=== PATIENT | female | born 1960 | race Caucasian/White ===

== ENCOUNTER 2021-04-01 13:41 | Emergency (ER) | payer MEDICARE, OTHER ==
[~2021-04-01] VITALS: Ht 154.9 cm; Wt 59.4 kg
[~2021-04-01 13:41] MED LIST: AMLODIPINE BESY10 MG PO; ATROVENT HFA12.9 GM INH; HYDROCODON-ACE1 EA10 PO; HYDROCODON-ACE1 EAC8 PO; NORVASC5 MG PO; OMEPRAZOLE20 M1 PO; PERCOCET 7.5-31 EACH PO; TRAMADOL HCL50 MG PO; ZESTORETIC 20-251 EA PO
--- OUTSIDE RECORDS SUMMARY | 2021-04-01 13:44 | XMS ---
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 EJanna VISIT COUNT (12 MO.) [address] [address]amorro [address] [place] [address] TOTAL 2 NOTE: Visits indicate total known visits. ED/UCC VISIT TRACKING (12 MO.) 04/01/2021 13:[address] [facility] [place] TYPE: Emergency COMPLAINT: - HAND PAIN 03/24/2021 14:47 [facility] [place] TYPE: Emergency DIAGNOSES: - Elevated white blood cell count, unspecified - Followup Medical Problem - Cellulitis of left upper limb - Hand Complaint - Rodent Bite INPATIENT VISIT TRACKING (12 MO.) 03/24/2021 21:51 [facility] TYPE: Internal Medicine DIAGNOSES: 0. TENO SYNNOVITIS CELLULITIS [email or web address]
[2021-04-01] MEDS ORDERED: AUGMENTIN 875-1 EACH PO (17:16)
[2021-04-01] MEDS ORDERED: K-TAB ER20 MEQ PO (17:21)
--- NOTE | 2021-04-01 19:49 | EKG ---
[facility] [address] [facility] [place], [place] [address] Signed Normal sinus rhythm Possible Left atrial enlargement Nonspecific ST abnormality Abnormal ECG No previous ECGs available Confirmed by ROGERS CORONADO DO ([id number]) on 04/01/2021 7:49:31 PM Electronically Signed By: ROGERS CORONADO DO 04/01/211948 PATIENT NAME: DIANE JEFFERSON Electrocardiogram DATE OF : 56 PHYSICIAN: ROGERS CORONADO DO REPORT #: [id number] REPORT IS CONFIDENTIAL AND NOT TO BE RELEASED WITHOUT AUTHORIZATION
== END 2021-04-01 17:32 | disposition home or self-care (01) ==
LOC: ED 13:41
DX: L03.113 Cellulitis of right upper limb (principal); E87.6 Hypokalemia; R53.1 Weakness; I10 Essential (primary) hypertension; F17.200 Nicotine dependence, unspecified, uncomplicated; Z79.899 Other long term (current) drug therapy
CPT/HCPCS: 70450; 80053; 84484; 85025; 93005; 93010; 99284-25

== ENCOUNTER 2021-04-30 16:53 | Emergency (ER) | payer MEDICARE, OTHER ==
[~2021-04-30] VITALS: Ht 154.9 cm; Wt 59.4 kg
[~2021-04-30 16:53] MED LIST changes: +ATORVASTATIN CA80 MG PO; +AUGMENTIN 875-1 EACH PO; +CEPHALEXIN500 M1 PO; +K-TAB ER20 MEQ PO
--- OUTSIDE RECORDS SUMMARY | 2021-04-30 16:56 | XMS ---
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 Denys VISIT COUNT (12 MO.) 2 Jermaine Chamorro [address] [place] [address] TOTAL 5 NOTE: Visits indicate total known visits. ED/UCC VISIT TRACKING (12 MO.) 04/30/2021 16:54 [facility] [place] TYPE: Emergency COMPLAINT: - HEAD INJURY 04/26/2021 11:35 [facility] [place] TYPE: Emergency COMPLAINT: - POST OP ISSUE DIAGNOSES: - Personal history of transient ischemic attack (TIA), and cerebral infarction without residual deficits - Nicotine dependence, unspecified, uncomplicated - Disruption of external operation (surgical) wound, not elsewhere classified, initial encounter - Other shelter (current) drug therapy - Essential (primary) hypertension 04/10/2021 11:37 [facility] TYPE: Emergency DIAGNOSES: - Cerebral infarction, unspecified - Dysarthria and anarthria - Weakness - Stroke-like symptoms - Slurred Speech - Cerebral infarction due to thrombosis of unspecified carotid artery 04/01/2021 13:42 [facility] [place] TYPE: Emergency COMPLAINT: - HAND PAIN DIAGNOSES: - Nicotine dependence, unspecified, uncomplicated - Cellulitis of right upper limb - Hypokalemia - 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 TYPE: Vascular Surgery DIAGNOSES: - Occlusion and stenosis of left carotid artery - Cerebral infarction due to thrombosis of right middle cerebral artery 03/24/2021 21:51 [facility] TYPE: Internal Medicine DIAGNOSES: 0. MELITAO SYNNOVITIS CELLULITIS [email or web address]
[2021-04-30] MEDS ORDERED: CLOPIDOGREL75 MG PO (17:07)
[2021-04-30] MEDS ORDERED: DUPIXENT P300 MG/2 M (17:08)
[2021-04-30] MEDS ORDERED: AMOX TR-K CLV1 EAC1 PO (17:08)
[2021-04-30] MEDS ORDERED: HYDROXYZINE HCL10 MG PO (17:09)
[2021-04-30] MEDS ORDERED: TRIAMCINOLONE A15 G3 TOP (17:09)
== END 2021-04-30 19:12 | disposition home or self-care (01) ==
LOC: ED 16:53
DX: S01.81XA Laceration without foreign body of other part of head, initial encounter (principal); W25.XXXA Contact with sharp glass, initial encounter; I10 Essential (primary) hypertension; F17.200 Nicotine dependence, unspecified, uncomplicated; Z79.899 Other long term (current) drug therapy
CPT/HCPCS: 12002; 70450; 99283-25

== ENCOUNTER 2023-10-17 03:40 | Emergency (ER) | payer MEDICARE, OTHER ==
[~2023-10-17] VITALS: Ht 154.9 cm; Wt 62.2 kg
[~2023-10-17 03:40] MED LIST changes: +AMOX TR-K CLV1 EAC1 PO; +CLOPIDOGREL75 MG PO; +DUPIXENT P300 MG/2 M; +HYDROXYZINE HCL10 MG PO; +TRIAMCINOLONE A15 G3 TOP
[2023-10-17 03:53] LABS: BASOPHILS 0.1 % (0-2); HEMATOCRIT 32.5 % (35.0-50.0); HEMOGLOBIN 10.2 g/dL (12.0-18.0); LYMPHOCYTES 6.2 % (24-44); MCH 23.2 (27-36); MCHC 31.5 g/dl (30-36); MCV 73.7 fl (81-99); MONOCYTES 14.7 % (0-12); PLATELET COUNT 460 K/uL (140-440); RBC 4.41 M/ul (4.3-5.7); RDW 17.5 (10.5-15.0)
[2023-10-17] MEDS ORDERED: ondansetron HCL 4 MG/2 ML VIAL IV ONE (04:00)
[2023-10-17] MEDS ORDERED: FAMOTIDINE 20 MG/ 2 ML VIAL IV ONE (04:00)
[2023-10-17] MEDS ORDERED: droPERidol 5 MG/2 ML VIAL IV ONE (04:00)
[2023-10-17] MEDS ORDERED: methylPREDNISolone SOD SUCC 125 MG/2 ML VIAL IV ONE (04:00)
[2023-10-17] MEDS ORDERED: LACTATED RINGER'S 1,000 ML IV ONE (04:00)
[2023-10-17 04:34] LABS: ALBUMIN/GLOBULIN RATIO 0.54 (1.1-2.4); ANION GAP 15.9 (7-21); BILIRUBIN, TOTAL 0.5 ng/dL (0.2-1.0); BUN/CREATININE RATIO 12.89 (6.0-28.6); CALCIUM 8.3 mg/dL (8.5-10.1); CREATININE, SERUM 4.42 mg/dL (0.55-1.02); POTASSIUM 3.9 mmol/L (3.5-5.1); PROTEIN, TOTAL 8.6 g/dL (6.4-8.2)
[2023-10-17] MEDS ORDERED: SODIUM CHLORIDE 0.9% 1,000 ML IV PRN (04:45)
[2023-10-17 05:14] LABS: INFLUENZA B NAA NEGATIVE (NEGATIVE); RESPIRATORY SYNCYTIAL VIR NAA NEGATIVE (NEGATIVE)
[2023-10-17] MEDS ORDERED: CEFTRIAXONE/SODIUM CHLORIDE 2 GM/100 ML PIGGYBACK IV ONE (06:00)
[2023-10-17 06:20] LABS: ANION GAP 13.4 (7-21); BUN/CREATININE RATIO 15.06 (6.0-28.6); CALCIUM 7.4 mg/dL (8.5-10.1); CREATININE, SERUM 3.85 mg/dL (0.55-1.02); POTASSIUM 3.4 mmol/L (3.5-5.1)
[2023-10-17 06:29] LABS: LACTIC ACID, BLOOD 1.7 mmol/L (0.4-2.0)
[2023-10-17] MEDS ORDERED: CALCIUM GLUCONATE 2,000 MG in DEXTROSE 5% 100 ML IV ONE (06:30)
[2023-10-17 06:43] LABS: BILIRUBIN, URINE POSITIVE (negative); BLOOD/HGB, URINE SMALL (Negative); KETONE, URINE TRACE (Negative); LEUK ESTERASE, URINE LARGE (negative); NITRITE, URINE NEGATIVE (negative); PH, URINE 6.5 (5-7)
[2023-10-17 06:49] LABS: EPITHELIAL CELLS, URINE SQUAMOUS 1+ /lpf (0-1+)
[2023-10-17 06:50] LABS: BACTERIA, URINE 4+ /hpf (negative); CASTS, URINE NONE SEEN \\lpf; COLLECTION TYPE, URINE CLEAN CATCH; CRYSTALS, URINE NONE SEEN (0-1+); REFLEX CULTURE, URINE Yes (No)
[2023-10-17] MEDS ORDERED: SODIUM CHLORIDE 0.9% 1,000 ML IV SCH (07:00)
[2023-10-17 09:10] LABS: ANION GAP 9.8 (7-21); BUN/CREATININE RATIO 18.33 (6.0-28.6); CALCIUM 10.3 mg/dL (8.5-10.1); POTASSIUM 2.8 mmol/L (3.5-5.1)
[2023-10-17 09:48] VITALS: BP 115/70
--- NOTE | 2023-10-17 15:38 | EKG ---
[facility] [address] [facility] [place] [address] Signed Normal sinus rhythm Nonspecific ST and T wave abnormality Prolonged QT Abnormal ECG When compared with ECG of 01-APR-2021 15:32, No significant change was found Confirmed by Rafael Zelaya ([id number]) on 10/17/2023 3:38:33 PM Electronically Signed By: RAFAEL ZELAYA MD 10/17/23 1538 PATIENT NAME: DIANE JEFFERSON Electrocardiogram DATE OF : 56 PHYSICIAN: RAFAEL ZELAYA MD REPORT #: [id number] REPORT IS CONFIDENTIAL AND NOT TO BE RELEASED WITHOUT AUTHORIZATION
== END 2023-10-17 09:48 | disposition other institution, planned readmission (95) ==
LOC: ED 03:40
PROVIDERS: Internal Medicine
DX: K56.699 Other intestinal obstruction unspecified as to partial versus complete obstruction (principal); N17.9 Acute kidney failure, unspecified; E86.0 Dehydration; E87.1 Hypo-osmolality and hyponatremia; K65.1 Peritoneal abscess; E87.6 Hypokalemia; R79.1 Abnormal coagulation profile; J44.9 Chronic obstructive pulmonary disease, unspecified; I10 Essential (primary) hypertension; Z86.73 Personal history of transient ischemic attack (TIA), and cerebral infarction without residual deficits; F17.200 Nicotine dependence, unspecified, uncomplicated; Z79.02 Long term (current) use of antithrombotics/antiplatelets; Z79.899 Other long term (current) drug therapy
CPT/HCPCS: 36415; 51702; 70450; 71045; 74176; 80048; 80053; 81001; 83605; 83880; 84484; 85025; 85379; 87040; 87077; 87088; 87186; 87502; 93005; 93010; 99285-25; J0612; J0696; J1790; J2930; J7030; J7121; U0002

== ENCOUNTER 2024-04-17 21:07 | Emergency (ER) | payer MEDICARE, OTHER ==
[~2024-04-17] VITALS: Ht 154.9 cm; Wt 58.1 kg
--- OUTSIDE RECORDS SUMMARY | ~2024-04-17 | XMS | Continuity of Care Document ---
Demographics + + + | Address | [address] | | | [place] [address] | + + + | Preferred Language | Unknown | + + + | Marital Status | Never | + + + | Jain Affiliation | Unknown | + + + | Race | White | + + + | Ethnic Group | Not or | + + + Author + + + | Author | [facility] | + + + | Organization | [facility] | + + + | Address | [address] | | | [place] [address] | + + + | Phone | | + + + Care Team Providers + + + + | Care Database Administration Project Manager Name | Role | Phone | + + + + Unavailable | Unavailable | + + + + Allergies No information. Encounters No information. Functional Status No information. Immunizations No information. Medications + + + + | date | description | facility | + + + + | 2024-03-23 00:00 | 30 ACTUAT umeclidinium | [facility] | | | 0.0625 MG/ACTUAT / | | | | vilanterol 0.025 MG/ACTUAT | | | | Dry Powder Inhaler [Anoro] | | + + + + | 2024-03-23 00:00 | Potassium Chloride ER 20 | [facility] | | | MEQ Oral Tablet Extended | | | | Release | | + + + + | 2024-03-23 00:00 | potassium chloride 20 MEQ | [facility] | | | Extended Release Oral | | | | Tablet | | + + + + | 2024-03-23 00:00 | Anoro Ellipta 62.5-25 | [facility] | | | MCG/ACT Inhalation Aerosol | | | | Powder Breath Activated | | + + + + | 2024-03-23 00:00 | clopidogrel 75 MG Oral | [facility] | | | Tablet | | + + + + | 2024-03-23 00:00 | Clopidogrel Bisulfate 75 | [facility] | | | MG Oral Tablet | | + + + + Problems + + + + | date | description | facility | + + + + | 2024-04-05 00:00 | history of (contextual | [facility] | | | qualifier) (qualifier | | | | value) | | + + + + | 2024-04-05 00:00 | Malignant melanoma of skin | [facility] | | | (disorder) | | + + + + | 2024-04-05 00:00 | HISTORY, PERSONAL, MALIG. | [facility] | | | MELANOMA, SKIN.. | | + + + + | 2024-04-05 00:00 | History of Skin Neoplasm | [facility] | | | Malignant Melanoma | | + + + + Procedures No information. Results/Labs No information. Social History + + + + | date | description | facility | + + + + | 2024-04-01 00:00 | Unknown if ever smoked | [facility] | + + + + | 2024-04-01 00:00 | Smoker (finding) | [facility] | + + + + | 2024-04-05 00:00 | Unknown if ever smoked | [facility] | + + + + | 2024-04-05 00:00 | Smoker (finding) | [facility] | + + + + Vital Signs No information."
[2024-04-17 21:23] LABS: BASOPHILS 1.1 % (0-2); EOSINOPHILS 2.2 % (0-6); HEMATOCRIT 41.7 % (35.0-50.0); HEMOGLOBIN 14.4 g/dL (12.0-18.0); LYMPHOCYTES 21.6 % (24-44); MCH 32.3 (27-36); MCHC 34.6 g/dl (30-36); MCV 93.2 fl (81-99); MONOCYTES 8.6 % (0-12); NEUTROPHILS 66.5 % (39-80); PLATELET COUNT 260 K/uL (140-440); RBC 4.47 M/ul (4.3-5.7)
[2024-04-17] MEDS ORDERED: ANORO ELLIPTA1 EACH INH (21:39)
[2024-04-17 22:12] LABS: ALBUMIN 3.2 g/dL (3.4-5.0); ALBUMIN/GLOBULIN RATIO 0.76 (1.1-2.4); ANION GAP 14.8 (7-21); BILIRUBIN, TOTAL 0.3 ng/dL (0.2-1.0); BUN/CREATININE RATIO 13.84 (6.0-28.6); CALCIUM 8.9 mg/dL (8.5-10.1); CREATININE, SERUM 0.65 mg/dL (0.55-1.02); POTASSIUM 3.8 mmol/L (3.5-5.1); PROTEIN, TOTAL 7.4 g/dL (6.4-8.2)
[2024-04-17 22:30] LABS: BILIRUBIN, URINE NEGATIVE (negative); BLOOD/HGB, URINE NEGATIVE (Negative); KETONE, URINE NEGATIVE (Negative); LEUK ESTERASE, URINE NEGATIVE (negative); NITRITE, URINE NEGATIVE (negative)
[2024-04-17 22:32] LABS: ABO O; ANTIBODY SCREEN NEGATIVE; RH POSITIVE
[2024-04-17 22:44] LABS: AMPHETAMINES, URINE NEGATIVE (NEGATIVE); BARBITURATES, URINE NEGATIVE (NEGATIVE); BENZODIAZEPINE, URINE NEGATIVE (NEGATIVE); BUPRENORPHINE, URINE NEGATIVE (NEGATIVE); CANNABINOID, URINE NEGATIVE (NEGATIVE); COCAINE, URINE NEGATIVE (NEGATIVE); ECSTASY, URINE NEGATIVE (NEGATIVE); FENTANYL, URINE NEGATIVE (NEGATIVE); METHADONE, URINE NEGATIVE (NEGATIVE); OPIATES, URINE NEGATIVE (NEGATIVE); OXYCODONE, URINE NEGATIVE (NEGATIVE); PHENCYCLIDINE, URINE NEGATIVE (NEGATIVE)
[2024-04-17] MEDS ORDERED: ACETAMINOPHEN 500 MG TAB PO ONE (23:30)
[2024-04-17 23:40] VITALS: BP 120/60
== END 2024-04-17 23:40 | disposition home or self-care (01) ==
LOC: ED 21:07
PROVIDERS: Internal Medicine
DX: S20.212A Contusion of left front wall of thorax, initial encounter (principal); W18.30XA Fall on same level, unspecified, initial encounter; M16.11 Unilateral primary osteoarthritis, right hip; F10.129 Alcohol abuse with intoxication, unspecified; Y90.7 Blood alcohol level of 200-239 mg/100 ml; I10 Essential (primary) hypertension; J44.9 Chronic obstructive pulmonary disease, unspecified; F17.200 Nicotine dependence, unspecified, uncomplicated; Z79.899 Other long term (current) drug therapy
CPT/HCPCS: 36415; 70450; 71045; 72125; 73502; 80053; 80307; 81003; 83690; 85025; 86850; 86900; 86901; 99284-25; A9270; G0480

== ENCOUNTER 2024-10-22 22:08 | Emergency (ER) | payer MEDICARE, OTHER ==
[~2024-10-22] VITALS: Ht 154.9 cm; Wt 52.8 kg
[~2024-10-22 22:08] MED LIST changes: +ANORO ELLIPTA1 EACH INH; +ASPIRIN325 MG PO; +POTASSIUM CHLO20 ME1 PO; +VENTOLIN HFA18 GM INH; +VITAMIN D3250 MCG PO
[2024-10-22] MEDS ORDERED: LACTATED RINGER'S 1,000 ML IV ONE (22:15)
[2024-10-22] MEDS ORDERED: fentaNYL citrate 100 MCG/2 ML VIAL IV ONE (22:15)
[2024-10-22 22:18] LABS: BASOPHILS 0.7 % (0-2); EOSINOPHILS 0.5 % (0-6); HEMATOCRIT 33.8 % (35.0-50.0); HEMOGLOBIN 11.9 g/dL (12.0-18.0); LYMPHOCYTES 7.3 % (24-44); MCH 36.4 (27-36); MCHC 35.2 g/dl (30-36); MCV 103.6 fl (81-99); MONOCYTES 7.1 % (0-12); NEUTROPHILS 84.4 % (39-80); PLATELET COUNT 288 K/uL (140-440); RBC 3.27 M/ul (4.3-5.7); RDW 14.9 (10.5-15.0)
[2024-10-22 22:33] LABS: ALBUMIN 2.9 g/dL (3.4-5.0); ALBUMIN/GLOBULIN RATIO 0.74 (1.1-2.4); ANION GAP 18.1 (7-21); BILIRUBIN, TOTAL 0.5 mg/dL (0.2-1.0); BUN/CREATININE RATIO 12.82 (6.0-28.6); CALCIUM 8.4 mg/dL (8.5-10.1); CREATININE, SERUM 0.39 mg/dL (0.55-1.02); POTASSIUM 4.1 mmol/L (3.5-5.1); PROTEIN, TOTAL 6.8 g/dL (6.4-8.2)
[2024-10-22 23:22] LABS: BILIRUBIN, URINE NEGATIVE (negative); BLOOD/HGB, URINE NEGATIVE (Negative); KETONE, URINE NEGATIVE (Negative); LEUK ESTERASE, URINE NEGATIVE (negative); NITRITE, URINE NEGATIVE (negative)
[2024-10-22 23:40] LABS: AMPHETAMINES, URINE NEGATIVE (NEGATIVE); BARBITURATES, URINE NEGATIVE (NEGATIVE); BENZODIAZEPINE, URINE NEGATIVE (NEGATIVE); BUPRENORPHINE, URINE NEGATIVE (NEGATIVE); CANNABINOID, URINE NEGATIVE (NEGATIVE); COCAINE, URINE NEGATIVE (NEGATIVE); ECSTASY, URINE NEGATIVE (NEGATIVE); FENTANYL, URINE NEGATIVE (NEGATIVE); METHADONE, URINE NEGATIVE (NEGATIVE); OPIATES, URINE NEGATIVE (NEGATIVE); OXYCODONE, URINE NEGATIVE (NEGATIVE); PHENCYCLIDINE, URINE NEGATIVE (NEGATIVE)
[2024-10-22] MEDS ORDERED: SODIUM CHLORIDE 0.9% 500 ML IV PRN (23:45)
[2024-10-23 00:30] VITALS: BP 126/67
== END 2024-10-23 00:30 | disposition home or self-care (01) ==
LOC: ED 22:08
PROVIDERS: Family Medicine
DX: S09.90XA Unspecified injury of head, initial encounter (principal); S76.011A Strain of muscle, fascia and tendon of right hip, initial encounter; I10 Essential (primary) hypertension; F17.200 Nicotine dependence, unspecified, uncomplicated; J44.9 Chronic obstructive pulmonary disease, unspecified; W18.30XA Fall on same level, unspecified, initial encounter; Z79.02 Long term (current) use of antithrombotics/antiplatelets; Z79.82 Long term (current) use of aspirin; Z79.899 Other long term (current) drug therapy; Z88.8 Allergy status to other drugs, medicaments and biological substances
CPT/HCPCS: 36415; 70450; 71260; 73502; 80053; 80307; 81003; 85025; 99284-25; G0480; J3010; J7040; J7121